=== PATIENT | male | born 1980 | race Hispanic/Latino ===

== ENCOUNTER 2018-08-01 21:51 | Inpatient (IN) | payer SELFPAY ==
[~2018-08-01] VITALS: Ht 175.3 cm; Wt 79.4 kg
[2018-08-01] MEDS ORDERED: ONDANSETRON HCL 4 MG/2 ML VIAL ONE (22:25)
[2018-08-01] MEDS ORDERED: SODIUM CHLORIDE 0.9% 1000ML 1,000 ML IV ONE ×2 (22:25→23:22)
[2018-08-01] MEDS ORDERED: SODIUM CHLORIDE 0.9% 100 ML IV ONE (22:26)
[2018-08-01 22:29] LABS: BASOPHILS % (AUTO) 0.3 % (0.0-5.0); HEMATOCRIT 45.4 % (42-54); LYMPHOCYTES % (AUTO) 4.6 % (21.0-51.0); MEAN CORPUSCULAR HEMOGLOBIN 30.4 pg (27.0-33.0); MEAN CORPUSCULAR VOLUME 89.6 fL (79-99); MONOCYTES % (AUTO) 2.5 % (3.0-13.0); NEUTROPHILS % (AUTO) 92.6 % (40.0-77.0); PLATELET COUNT (AUTO) 225 K/uL (130-400); RED BLOOD CELL COUNT(AUTO) 5.07 MIL/uL (4.50-6.20); RED CELL DISTRIBUTION WIDTH 13.7 % (11.0-15.5); WHITE BLOOD COUNT (AUTO) 10.2 K/uL (4.8-10.8)
[2018-08-01 22:41] LABS: INR 0.89 (0.85-1.15); PARTIAL THROMBOPLASTIN TIME 27.5 SEC (26.3-35.5); PROTHROMBIN TIME 9.4 SEC (9.6-11.6)
[2018-08-01 22:58] LABS: POTASSIUM 3.4 mmol/L (3.5-5.1)
[2018-08-01 23:02] LABS: BILIRUBIN,TOTAL 0.3 mg/dL (0.2-1.0); TOTAL PROTEIN, SERUM 8.2 g/dL (6.0-8.3)
[2018-08-01 23:37] LABS: BILIRUBIN,URINE Negative (NEGATIVE); COLOR,URINE Yellow (YELLOW); GLUCOSE, URINE (UA) Negative (NEGATIVE); KETONES,URINE Trace mg/dL (NEGATIVE); LEUKOCYTE ESTERASE ,URINE Negative (NEGATIVE); NITRATE,URINE Negative (NEGATIVE); OCCULT BLOOD,URINE Negative (NEGATIVE); PROTEIN,URINE POS 2+ (NEGATIVE); UROBILINOGEN,URINE 0.2 mg/dL (0.2-1.0)
[2018-08-01 23:39] LABS: APPEARANCE,URINE CLEAR (CLEAR)
[2018-08-01 23:47] LABS: AMPHET/METH SCREEN,URINE NEGATIVE (NEGATIVE); BARBITURATE SCREEN, URINE NEGATIVE (NEGATIVE); BENZODIAZEPINES SCREEN,URINE NEGATIVE (NEGATIVE); CANNABINOID SCREEN,URINE POSITIVE (NEGATIVE); COCAINE SCREEN,URINE POSITIVE (NEGATIVE); OPIATE SCREEN,URINE NEGATIVE (NEGATIVE); PHENCYCLIDINE SCREEN,URINE NEGATIVE (NEGATIVE)
[2018-08-02] VITALS (17 sets, daily range): BP systolic 101–143; BP diastolic 46–90
[2018-08-02] MEDS ORDERED: ONDANSETRON HCL 4 MG/2 ML VIAL ONE (00:11)
[2018-08-02 00:14] LABS: WBC,URINE 0-1 /HPF (0-1)
[2018-08-02 00:15] LABS: BACTERIA,URINE Rare /HPF (None Seen); SQUAMOUS EPITHELIAL CELL,UR 0-2 /HPF (0-2)
[2018-08-02 00:50] LABS: HEMATOCRIT 38.2 % (42-54)
[2018-08-02] MEDS: SODIUM CHLORIDE 0.9% 1000ML 1,000 ML IV SCH ×4 (01:41→21:41)
[2018-08-02] MEDS ORDERED: MORPHINE SULFATE 4 MG/1ML SYG IV PRN (01:45)
[2018-08-02] MEDS ORDERED: ACETAMINOPHEN 325 MG TAB PO PRN ×2 (01:45)
[2018-08-02] MEDS ORDERED: SODIUM CHLORIDE 0.9% 1000ML 1,000 ML IV ONE (05:28)
--- NOTE | 2018-08-02 05:45 | NUR ---
ADMIT NOTE ADMIT TO ROOM 411 VIA STRETCHER FROM ER. PATIENT AWAKE, ALERT, OX3, NO SOB NO C/O PAIN AT THIS TIME, PROTONIX GTT AT 8 MG HR, IVF OF NS AT 150 CC/HR INFUSING WELL, REINFORCE NPO STATUS, AT BEDSIDE, TEACH PLAN OF CARE AND EXPECTED OUTCOME, BOTH VERBALIZE UNDERSTANDING VIA MYLES STEPHENSON
[2018-08-02 05:46] LABS: HEMATOCRIT 41.5 % (42-54)
[2018-08-02] MEDS ORDERED: LIDOCAINE HCL-MPF 1% 2ML VIAL IVP PRN (07:45)
[2018-08-02] MEDS ORDERED: POTASSIUM CHLORIDE 10MEQ/100ML 100 ML IV PRN (07:45)
[2018-08-02] MEDS ORDERED: POTASSIUM CHLORIDE 10% ELIXIR 20 MEQ/15 ML UDCUP PO PRN (07:45)
[2018-08-02] MEDS ORDERED: PANTOPRAZOLE SODIUM 80 MG in SODIUM CHLORIDE 0.9% 100 ML IV SCH (09:00)
--- NOTE | 2018-08-02 10:30 | NUR ---
DR. GIVENS SPOKE TO MD VIA TELEPHONE REGARDING CONSULT. NO NEW ORDERS AT THIS TIME.
[2018-08-02] MEDS: ONDANSETRON HCL 4 MG/2 ML VIAL IV PRN ×3 (11:03→16:52)
--- NOTE | 2018-08-02 15:35 | NUR ---
DCP CM met with pt discussed dc plans. Pt is independent prior to admission, lives at home with spouse and children. Denies any equipments/services. Pt feels safe to go back home, still drives, spouse able to assist with transportation and needs as necessary. 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 DC plan to home once stable. CM to cont to follow up. Addendum: 08/02/18 at 1537 by THOMAS PIKE LVN CM Amended: Links added.
[2018-08-02] MEDS ORDERED: GLYCOPYRROLATE 0.2 MG/ML 5 ML VIAL ONE (15:49)
[2018-08-02] MEDS ORDERED: METOCLOPRAMIDE 10 MG/2 ML VIAL ONE (16:23)
[2018-08-03 03:45] VITALS: BP 108/56
[2018-08-03] MEDS: SODIUM CHLORIDE 0.9% 1000ML 1,000 ML IV SCH ×2 (04:10→11:56)
[2018-08-03 05:00] LABS: BASOPHILS % (AUTO) 0.7 % (0.0-5.0); EOSINOPHILS % (AUTO) 0.6 % (0.0-8.0); HEMATOCRIT 39.3 % (42-54); LYMPHOCYTES % (AUTO) 25.5 % (21.0-51.0); MEAN CORPUSCULAR HEMOGLOBIN 30.1 pg (27.0-33.0); MEAN CORPUSCULAR HGB CONC 33.6 g/dL (32.0-36.0); MEAN CORPUSCULAR VOLUME 89.6 fL (79-99); NEUTROPHILS % (AUTO) 62.2 % (40.0-77.0); PLATELET COUNT (AUTO) 197 K/uL (130-400); RED BLOOD CELL COUNT(AUTO) 4.39 MIL/uL (4.50-6.20); WHITE BLOOD COUNT (AUTO) 8.2 K/uL (4.8-10.8)
[2018-08-03 05:09] LABS: CREATININE 1.1 mg/dL (0.5-1.5); POTASSIUM 3.5 mmol/L (3.5-5.1)
[2018-08-03] MEDS: POTASSIUM CHLORIDE 20 MEQ ERTAB PO PRN ×2 (06:51→09:55)
[2018-08-03 08:00] VITALS: BP 118/61
[2018-08-03] MEDS ORDERED: PANTOPRAZOLE SODIUM 40 MG TABLET.DR PO SCH (09:00)
[2018-08-03] MEDS ORDERED: PANT40TA PO (10:14)
[2018-08-03 11:44] VITALS: BP 119/70
--- NOTE | 2018-08-03 12:55 | NUR ---
DR. DAVIS INFORMED OF POTASSIUM RECHECK. MD PLACED ORDERS TO GIVE POTASSIUM 40 MEQ PO ONCE AND OKAY TO PROCEED WITH DISCHARGE HOME TODAY.
[2018-08-03] MEDS ORDERED: POTASSIUM CHLORIDE 20 MEQ ERTAB PO SCH (13:00)
--- NOTE | 2018-08-03 14:00 | NUR ---
DISCHARGE DISCHARGE TEACHING PROVIDED TO PATIENT. INFORMED PATIENT HE WAS TO CALL HIS PRIMARY MD AND THE OFFICE OF DR. GIVENS TO SCHEDULE 2 WEEK F/U APPT. PROVIDED EDUCATION ON RECOMMENDED DIET, ANTI-REFLUX REGIMENT, AND WARNING S/S TO MONITOR FOR. RX TEACHING PROVIDED TO PATIENT, RX FOR PROVIDED TO PATIENT. PATIENT VERBALIZED UNDERSTANDING OF DISCHARGE TEACHING. REMOVED 20G IV FROM RIGHT AC, CATHETER INTACT. Addendum: 08/03/18 at 1412 by CHETAN MORENO RN RN REGIMEN*
== END 2018-08-03 14:25 | disposition home or self-care (01) | DRG 378 ==
LOC: EDH 21:51 → EDHIP 21:52 → OBSVTOIN 21:52 → 4BH 08-02 05:28
PROVIDERS: ADMIT Internal Medicine; ATTEND Internal Medicine
PROC: 0DB58ZX Excision of Esophagus, Via Natural or Artificial Opening Endoscopic, Diagnostic (ICD-10-PCS; principal; 2018-08-02)
PROC: 0DB78ZX Excision of Stomach, Pylorus, Via Natural or Artificial Opening Endoscopic, Diagnostic (ICD-10-PCS; 2018-08-02)
PROC: 0DB68ZX Excision of Stomach, Via Natural or Artificial Opening Endoscopic, Diagnostic (ICD-10-PCS; 2018-08-02)
DX: K29.01 Acute gastritis with bleeding (principal); D62 Acute posthemorrhagic anemia; K21.0 Gastro-esophageal reflux disease with esophagitis; F14.10 Cocaine abuse, uncomplicated; F17.200 Nicotine dependence, unspecified, uncomplicated; Z83.3 Family history of diabetes mellitus; Z82.49 Family history of ischemic heart disease and other diseases of the circulatory system
CPT/HCPCS: 36415; 43239; 71045; 80048; 80053; 80305; 81001; 82150; 82270; 82550; 83690; 84132; 84484; 85014; 85018; 85025; 85610; 85730; 86850; 86900; 86901; 88305; 93005; 99291; C9113; G0378; J2405; J2765; J3490; J7030

== ENCOUNTER 2019-04-06 20:21 | Emergency (ER) | payer OTHER ==
[~2019-04-06 20:21] MED LIST: PANT40TA PO
[2019-04-06] MEDS ORDERED: LIDOCAINE HCL-MPF 1% 2ML VIAL ONE (20:40)
[2019-04-06] MEDS ORDERED: CEFTRIAXONE SODIUM 1 GM ONE (20:41)
[2019-04-06] MEDS ORDERED: KETOROLAC TROMETHAMINE 60 MG/2 ML VIAL ONE (20:41)
== END 2019-04-06 21:21 | disposition home or self-care (01) ==
LOC: EDH 20:21
DX: K02.9 Dental caries, unspecified (principal); Z72.0 Tobacco use
CPT/HCPCS: 96372 ×2; 99284; J0696; J1885; J3490

== ENCOUNTER 2019-12-07 06:31 | Emergency (ER) | payer SELFPAY ==
[2019-12-07] MEDS ORDERED: ONDANSETRON HCL 4 MG/2 ML VIAL ONE (06:42)
[2019-12-07] MEDS ORDERED: DiphenhydrAMINE HCL 50 MG/ML VIAL ONE (08:02)
[2019-12-07] MEDS ORDERED: PROCHLORPERAZINE EDISYLATE 10 MG/2 ML VIAL ONE (08:03)
[2019-12-07] MEDS ORDERED: FAMOTIDINE/PF 20 MG/2 ML VIAL IV ONE (08:04)
== END 2019-12-07 08:54 | disposition home or self-care (01) ==
LOC: EDH 06:31
DX: K29.00 Acute gastritis without bleeding (principal); F14.10 Cocaine abuse, uncomplicated
CPT/HCPCS: 36415; 80053; 80305; 81001; 82150; 83690; 85025; 96374; 96375; 99284; J0780; J1200; J2405; J3490

== ENCOUNTER 2021-07-19 13:52 | Emergency (ER) | payer SELFPAY ==
[~2021-07-19] VITALS: Ht 172.7 cm; Wt 81.6 kg
[2021-07-19] MEDS ORDERED: 0.9%NACL 1000ML 1,000 ML IV ONE (14:00)
[2021-07-19 14:13] LABS: BASOPHILS % (AUTO) 0.2 % (0.0-5.0); EOSINOPHILS % (AUTO) 0.1 % (0.0-8.0); HEMATOCRIT 48.8 % (42-54); LYMPHOCYTES % (AUTO) 9.8 % (21.0-51.0); MEAN CORPUSCULAR HEMOGLOBIN 29.8 pg (27.0-33.0); MEAN CORPUSCULAR VOLUME 90.4 fL (79-99); MONOCYTES % (AUTO) 2.9 % (3.0-13.0); NEUTROPHILS % (AUTO) 86.6 % (40.0-77.0); PLATELET COUNT (AUTO) 238 K/uL (130-400); WHITE BLOOD COUNT (AUTO) 11.2 K/uL (4.8-10.8)
[2021-07-19] MEDS ORDERED: DiphenhydrAMINE HCL 50 MG/ML VIAL IV ONE (14:30)
[2021-07-19] MEDS ORDERED: HALOPERIDOL INJ 5 MG/ML VIAL IV SCH (14:30)
[2021-07-19 14:33] LABS: ALBUMIN 4.3 g/dL (3.5-5.0); BILIRUBIN,TOTAL 0.4 mg/dL (0.2-1.0); POTASSIUM 3.9 mmol/L (3.5-5.1); TOTAL PROTEIN, SERUM 8.3 g/dL (6.0-8.3)
[2021-07-19] MEDS ORDERED: METO10TA41 PO (15:47)
[2021-07-19 16:18] VITALS: BP 133/74
== END 2021-07-19 16:19 | disposition home or self-care (01) ==
LOC: EDH 13:52
DX: R11.2 Nausea with vomiting, unspecified (principal); F12.90 Cannabis use, unspecified, uncomplicated; R19.7 Diarrhea, unspecified
CPT/HCPCS: 36415; 80053; 83690; 85025; 96361 ×2; 96374; 96375; 99284; J1200; J1630; J7030

== ENCOUNTER 2021-10-15 23:26 | Emergency (ER) | payer OTHER ==
[~2021-10-15] VITALS: Ht 172.7 cm; Wt 77.1 kg
[~2021-10-15 23:26] MED LIST changes: +METO10TA41 PO
[2021-10-16 00:01] LABS: BASOPHILS % (AUTO) 0.1 % (0.0-5.0); HEMATOCRIT 45.3 % (42-54); LYMPHOCYTES % (AUTO) 4.9 % (21.0-51.0); MEAN CORPUSCULAR HEMOGLOBIN 30.9 pg (27.0-33.0); MEAN CORPUSCULAR HGB CONC 34.4 g/dL (32.0-36.0); MEAN CORPUSCULAR VOLUME 89.7 fL (79-99); MONOCYTES % (AUTO) 4.4 % (3.0-13.0); NEUTROPHILS % (AUTO) 90.1 % (40.0-77.0); PLATELET COUNT (AUTO) 207 K/uL (130-400); RED BLOOD CELL COUNT(AUTO) 5.05 MIL/uL (4.50-6.20); RED CELL DISTRIBUTION WIDTH 13.4 % (11.0-15.5)
[2021-10-16 00:01] LABS: APPEARANCE,URINE Clear (CLEAR); BILIRUBIN,URINE Negative (NEGATIVE); COLOR,URINE Dark Yellow (YELLOW); GLUCOSE, URINE (UA) TRACE mg/dL (NEGATIVE); KETONES,URINE >=160 mg/dL (NEGATIVE); LEUKOCYTE ESTERASE ,URINE Trace (NEGATIVE); NITRATE,URINE Negative (NEGATIVE); OCCULT BLOOD,URINE Negative (NEGATIVE); PH,URINE 7.5 (5.0-8.0); PROTEIN,URINE POS 2+ mg/dL (NEGATIVE)
[2021-10-16 00:11] LABS: CARBON DIOXIDE 26 mmol/L (21-32); CHLORIDE 105 mmol/L (101-111); CREATININE 1.2 mg/dL (0.5-1.5); GLOMERULAR FILTR. RATE CALC 71 mL/min (>60); GLUCOSE,RANDOM 165 mg/dL (70-105); POTASSIUM 3.6 mmol/L (3.5-5.1); SODIUM SERUM 143 mmol/L (136-145); UREA NITROGEN, BLOOD 23 mg/dL (7-18)
[2021-10-16 00:11] LABS: WBC,URINE None Seen /HPF (0-1)
[2021-10-16 00:12] LABS: BACTERIA,URINE None Seen /HPF (None Seen); MUCUS,URINE Few LPF (None Seen); SQUAMOUS EPITHELIAL CELL,UR None Seen /HPF (0-2)
[2021-10-16 00:18] LABS: ALANINE AMINOTRANSFERASE 23 U/L (12-78); ALBUMIN 4.1 g/dL (3.5-5.0); ASPARTATE AMINOTRANSFERASE 21 U/L (10-37); BILIRUBIN,TOTAL 0.7 mg/dL (0.2-1.0); CREATINE KINASE, TOTAL 171 U/L (21-232); TOTAL PROTEIN, SERUM 7.8 g/dL (6.0-8.3)
[2021-10-16 00:21] LABS: LIPASE < 50 U/L (114-286)
[2021-10-16] MEDS ORDERED: IOHEXOL-350 75 ML VIAL IV ONE (00:57)
[2021-10-16] MEDS ORDERED: 0.9%NACL 1000ML 1,000 ML IV ONE ×2 (01:00)
[2021-10-16 03:18] LABS: AMPHET/METH SCREEN,URINE NEGATIVE (NEGATIVE); BARBITURATE SCREEN, URINE NEGATIVE (NEGATIVE); BENZODIAZEPINES SCREEN,URINE NEGATIVE (NEGATIVE); CANNABINOID SCREEN,URINE POSITIVE (NEGATIVE); COCAINE SCREEN,URINE POSITIVE (NEGATIVE); OPIATE SCREEN,URINE NEGATIVE (NEGATIVE); PHENCYCLIDINE SCREEN,URINE NEGATIVE (NEGATIVE)
[2021-10-16] MEDS ORDERED: PROMETHAZINE HCL 25 MG/ML 1ML AMPULE IM ONE ×2 (04:30)
[2021-10-16] MEDS ORDERED: PROM25TA7 PO (05:55)
[2021-10-16 05:59] VITALS: BP 128/66
== END 2021-10-16 06:07 | disposition home or self-care (01) ==
LOC: EDH 23:26
DX: E86.0 Dehydration (principal); R11.2 Nausea with vomiting, unspecified; F12.10 Cannabis abuse, uncomplicated; R73.9 Hyperglycemia, unspecified; R00.1 Bradycardia, unspecified; Z79.899 Other long term (current) drug therapy; F17.200 Nicotine dependence, unspecified, uncomplicated
CPT/HCPCS: 36415; 71045; 74177; 80053; 80305; 81001; 82550; 83690; 84484; 85025; 93005; 96360; 96372 ×2; 99285; J2550; J7030; Q9967